=== PATIENT | male | born 2000 | race Caucasian/White ===

== ENCOUNTER 2024-01-27 07:59 | Emergency (ER) | payer BC ==
[2024-01-27 08:15] VITALS: BP 119/75; PULSE 61; TEMP 98.1; O2SAT 100
--- NOTE | 2024-01-27 09:03 | ERPHSYRPT ---
- History of Present Illness Time Seen by Provider: 01/27/24 08:57 Source: patient Exam Limitations: no limitations Patient Subjective Stated Complaint: splinter in left thumbnail Triage Nursing Assessment: Pt brought self to the ER, vitals wnl, rates pain as a 2 if not touching and 10 if touching, pulses normal, skin n/w/d, splinter straight down in thumbnail approx 1/[address] down the nail, denies any other injury Physician History: 23-year-old male right-handed dominant presented in the ER with complains of wood splinter left thumb underneath the nail for more than 24 hours while at work. Patient reports dull aching pain constantly, gets worse with touching. Minimal swelling of the thumb. No difficulty movements at the interphalangeal joints. Up-to-date with tetanus. Patient has a wooden splinter underneath left thumbnail. Marked tenderness with touching. Intact range of motion at the interphalangeal joints. I have given him bring block, cut the edge of the nail and have pulled it out. Part of it is possibly broken and could be inside but most of it is out as I could not get it out in 1 piece. Patient is started on Keflex and ibuprofen. Outpatient follow-up recommended. Discussed signs symptoms of worsening needing return to ER which she seems understanding. Allergies/Adverse Reactions: No Known Drug Allergies Allergy (Verified 01/27/24 08:16) Hx Tetanus, Diphtheria Vaccination/Date Given: No (high school) Hx Influenza Vaccination/Date Given: No Hx Pneumococcal Vaccination/Date Given: No Travel Risk - International Travel Have you traveled outside of the country in past 3 weeks: No - Emerging Infectious Disease Are you exhibiting symptoms associated with any current EIDs: No - Review of Systems Constitutional: No Symptoms Ears, Nose, & Throat: No Symptoms Respiratory: No Symptoms Cardiac: No Symptoms Abdominal/Gastrointestinal: No Symptoms Genitourinary Symptoms: No Symptoms Musculoskeletal: Injury Neurological: No Symptoms Endocrine: No Symptoms - Past Medical History Pertinent Past Medical History: No - Past Surgical History Past Surgical History: Yes Gastrointestinal: Appendectomy - Social History Smoking Status: Never smoker Exposure to second hand smoke: No Drug Use: marijuana - Social Determinants of Health Will the patient participate in the screening: Declined to provide - Nursing Vital Signs Nursing Vital Signs: Initial Vital Signs Temperature 98.1 F 01/27/24 08:06 Pulse Rate 61 01/27/24 08:06 Blood Pressure 119/75 01/27/24 08:06 O2 Sat by Pulse Oximetry 100 01/27/24 08:06 Pain Scale Pain Intensity 2 - Physical Exam General Appearance: no apparent distress, alert Eye Exam: PERRL/EOMI Neck Exam: normal inspection, full range of motion Respiratory Exam: normal breath sounds, lungs clear Cardiovascular Exam: regular rate/rhythm, normal heart sounds Extremity Exam: normal inspection, tenderness, other (Splint underneath left thumbnail) Neurologic Exam: oriented x 3, cooperative Skin Exam: normal color SpO2 Interpretation: normal SpO2: 100 O2 Delivery: Room Air Procedures - Additional Procedures Progress: Foreign body removal underneath left thumbnail. Under aseptic measures it is clean, ring block with lidocaine 2% applied. Small cut made at the edge of the nail and plantar is pulled out. It broke into pieces on the way out. Dressing applied, started on antibiotics. Ordered Tests: Medication Summary Discontinued Medications Generic Name Dose Route Start Last Admin Trade Name Freq PRN Reason Stop Dose Admin Cephalexin HCl 500 mg 01/27/24 08:57 Cephalexin Mh500 Mg Capsule PO 01/27/24 08:58 STAT ONE Ibuprofen 600 mg 01/27/24 08:57 Ibuprofen 600 Mg Tablet PO 01/27/24 08:58 STAT ONE - Progress Progress Note: 01/27/24 09:04 23-year-old male right-handed dominant presented in the ER with complains of wood splinter left thumb underneath the nail for more than 24 hours while at work. Patient reports dull aching pain constantly, gets worse with touching. Minimal swelling of the thumb. No difficulty movements at the interphalangeal joints. Up-to-date with tetanus. Patient has a wooden splinter underneath left thumbnail. Marked tenderness with touching. Intact range of motion at the interphalangeal joints. I have given him bring block, cut the edge of the nail and have pulled it out. Part of it is possibly broken and could be inside but most of it is out as I could not get it out in 1 piece. Patient is started on Keflex and ibuprofen. Outpatient follow-up recommended. Discussed signs symptoms of worsening needing return to ER which she seems understanding. Counseled pt/family regarding: diagnosis, need for follow-up Medical Desision Making - Diagnostic Testing Diagnostic test were ordered, analyzed, and reviewed by me: No - Risk of complications The pt has a mod risk of morbidity or mortality based on: Need for prescription drug management, Need for minor surgical intervention in patient with know risk factors - Departure Departure Disposition: Home Clinical Impression: Wood splinter under thumbnail Condition: Stable Critical Care Time: No Referrals: DOCTOR,NO FAMILY [Primary Care Provider] - Follow up with PCP 1 day LAVINIA DIETRICH MD [ACTIVE STAFF] - Follow up/PCP as directed (Call tomorrow for reevaluation) Instructions: Foreign Body in Skin (DC) Additional Instructions: Keep it elevated, avoid exertional activities. Take Tylenol/ibuprofen as need ed. Follow-up with primary care for reevaluation also follow-up with orthopedics. Return to ER for increasing pain swelling redness discharge, fever chills etc. Prescriptions: Ibuprofen 600 mg PO Q6HPRN PRN 10 Days #20 tablet PRN Reason: Pain Cephalexin Mh 500 mg [Keflex 500 mg] 500 mg PO TID #21 cap
[2024-01-27] MEDS ORDERED: KEFLEX 500 MG ONE (09:12)
[2024-01-27] MEDS ORDERED: MOTRIN 600 MG ONE (09:12)
[2024-01-27] MEDS: KEFLEX 500 MG PO ONE (09:14)
[2024-01-27] MEDS: MOTRIN 600 MG PO ONE (09:14)
== END 2024-01-27 09:27 | disposition home or self-care (01) ==
LOC: ED 07:59
DX: S60.352A Superficial foreign body of left thumb, initial encounter (principal); W45.8XXA Other foreign body or object entering through skin, initial encounter
CPT/HCPCS: 99282; A9270-GY